=== PATIENT | male | born 1960 | race Asian ===

== ENCOUNTER 2016-11-03 13:58 | Emergency (ER) | payer OTHER ==
[2016-11-03 14:03] VITALS: TEMP 98.6
[2016-11-03 15:06] LABS: % IMMATURE GRANULYOCYTES 0.1 % (0.0-1.1); ABSOLUTE IMMATURE GRANULOCYTES 0.01 10^3/uL (0.00-0.10); ADD DIFF? NO; ADD MORPH? NO; ADD SCAN? NO; ATYPICAL LYMPHOCYTE FLAG 0 (0-99); FRAGMENT RBC FLAG 0 (0-99); HEMATOCRIT 48.4 % (40.0-51.0); HEMOGLOBIN 16.9 g/dL (13.7-17.5); LEFT SHIFT FLG 0 (0-99); LIPEMIA HEMOLYSIS FLAG 90 (0-99); MEAN CELL HEMOGLOBIN 32.8 pg (27.9-34.1); MEAN CELL HEMOGLOBIN CONCENTR. 34.9 g/dL (32.4-36.7); MEAN PLATELET VOLUME 9.5 fL (8.7-11.7); PLATELET CLUMPS FLAG 10 (0-99); PLATELET COUNT 243 10^3/uL (150-400); RED BLOOD CELL COUNT 5.15 10^6/uL (4.40-6.38); RED CELL DISTRIBUTION WIDTH 11.9 % (11.5-15.2)
[2016-11-03 15:21] LABS: ANION GAP 13 mEq/L (8-16); CALCIUM 9.5 mg/dL (8.5-10.4); CARBON DIOXIDE 23 mEq/l (22-31); CHLORIDE 104 mEq/L (97-110); CREATININE 0.9 mg/dL (0.7-1.3); ETHANOL SERUM < 10 mg/dL (0-10); GLOMERULAR FILTRATION RATE > 60; GLUCOSE 90 mg/dL (70-100); POTASSIUM 4.1 mEq/L (3.5-5.2); SODIUM 140 mEq/L (134-144)
--- NOTE | 2016-11-03 15:46 | EDPHY ---
Mental Health General Smoking Status: Never smoked Time Medically Cleared for Psychiatric Evaluation: 15:46 Time of Transfer of Care: 18:[address] To [address]:: Arvind Narrative: CHIEF COMPLAINT: anxiety HISTORY OF PRESENT ILLNESS: 56-year-old male presents emergency department with his requesting a mental evaluation. Patient has had multiple life stressors with stress at work and at home with a 15-year-old daughter. Patient started seeing a therapist 8 months ago, he started seeing a psychiatrist 1 month ago. Patient was started on an SSRI on October 19 and he was started on Seroquel to help with sleep 10 days ago. For the last week he is taking 150 mg each night. Patient reports he is not feeling any better, reports he is not eating, he is pacing around the house, she has found him in a position on the floor multiple times over the last couple days. Patient told his yesterday that he was not eating because he was worried about finances and being able to feed his family. His is been to him for 38 years and has never seen this way. Patient do denies any previous mental health history. He denies drug use. Patient was also prescribed Valium to use as needed which he does not like to use as it is too sedating. Patient has not gone to work for the last week. REVIEW OF SYSTEMS: A comprehensive 10 point review of systems is otherwise negative aside from elements mentioned in the history of present illness. Physical Exam Gen: Alert and Oriented, NAD HEENT: PERRL, moist mucous membranes NECK: no meningismus CV: regular rate and regular rhythm PULM: CTAB, no wheezes ABDOMEN: soft, non tender to palpation, BS present NEURO: Neurologically grossly intact EXTREMITIES: normal appearing SKIN: no rash or break in skin on exposed skin PSYCH: Flat affect, denies suicidal ideations, homicidal ideations, auditory or visual hallucinations (Valerie Sinha) Medical Decision Makin-Report passed on to Dr. Samuels at the end of my shift. Mental health at bedside. (Valerie Sinha) 1930 patient has been seen by DEVON Wright food preparer. Patient is dora for safety. He is discussed with psychiatrist. Plan is to increase the patient 's Seroquel to 300 mg at night. He will discontinue the SSRI. Will follow up with his psychiatrist, Dr. Ríos on Saturday. Patient is not suicidal or homicidal. He is dora for safety. He is not gravely disabled at this time. He is not holdable at this time. Patient and family are in agreement with this plan. (Francisco J Samuels) - Objective Vital Signs: Initial Vital Signs Temperature (C) 37 C 11/03/16 13:59 Heart Rate 69 11/03/16 13:59 Respiratory Rate 14 11/03/16 13:59 Blood Pressure 142/60 H 11/03/16 13:59 O2 Sat (%) 93 11/03/16 13:59 O2 Delivery Mode Room Air Allergies/Adverse Reactions: mustard Allergy (Verified 11/03/16 14:01) peanut Allergy (Verified 11/03/16 14:01) Home Medications: Medication Instructions Recorded Lipitor 11/03/16 Prozac 10 MG (*) 11/03/16 QUEtiapine FUMARATE [Seroquel 300 mg PO HS #30 tab 11/03/16 300mg (*)] Seroquel 25 mg (*) 11/03/16 Symbicort 160-4.5 Mcg Inh (*) 11/03/16 Laboratory Results: Laboratory Results 11/03/16 14:55 11/03/16 14:55 11/03/16 11/03/16 11/03/16 14:55 14:55 14:55 WBC 8.27 10^3/uL 10^3/uL (3.80-9.50) RBC 5.15 10^6/uL 10^6/uL (4.40-6.38) Hgb 16.9 g/dL g/dL (13.7-17.5) Hct 48.4 % % (40.0-51.0) MCV 94.0 fL fL (81.5-99.8) MCH 32.8 pg pg (27.9-34.1) MCHC 34.9 g/dL g/dL (32.4-36.7) RDW 11.9 % % (11.5-15.2) Plt Count 243 10^3/uL 10^3/uL (150-400) MPV 9.5 fL fL (8.7-11.7) Neut % (Auto) 70.5 % % (39.3-74.2) Lymph % (Auto) 20.8 % % (15.0-45.0) [place] % (Auto) 7.1 % % (4.5-13.0) Eos % (Auto) 1.0 % % (0.6-7.6) Baso % (Auto) 0.5 % % (0.3-1.7) Nucleat RBC Rel Count 0.0 % % (0.0-0.2) Absolute Neuts (auto) 5.83 10^3/uL 10^3/uL (1.70-6.50) Absolute Lymphs (auto) 1.72 10^3/uL 10^3/uL (1.00-3.00) Absolute Monos (auto) 0.59 10^3/uL 10^3/uL (0.30-0.80) Absolute Eos (auto) 0.08 10^3/uL 10^3/uL (0.03-0.40) Absolute Basos (auto) 0.04 10^3/uL 10^3/uL (0.02-0.10) Absolute Nucleated RBC 0.00 10^3/uL 10^3/uL (0-0.01) Immature Gran % 0.1 % % (0.0-1.1) Immature Gran # 0.01 10^3/uL 10^3/uL (0.00-0.10) Sodium 140 mEq/L mEq/L (134-144) Potassium 4.1 mEq/L mEq/L (3.5-5.2) Chloride 104 mEq/L mEq/L (97-110) Carbon Dioxide 23 mEq/l mEq/l (22-31) Anion Gap 13 mEq/L mEq/L (8-16) BUN 13 mg/dL mg/dL (7-23) Creatinine 0.9 mg/dL mg/dL (0.7-1.3) Estimated GFR > 60 Glucose 90 mg/dL mg/dL (70-100) Calcium 9.5 mg/dL mg/dL (8.5-10.4) TSH 0.809 uIU/mL uIU/mL (0.465-4.680) Urine Opiates Screen NEGATIVE (NEGATIVE) Urine Barbiturates NEGATIVE (NEGATIVE) Ur Phencyclidine Scrn NEGATIVE (NEGATIVE) Ur Amphetamine Screen NEGATIVE (NEGATIVE) U Benzodiazepines Scrn NON-NEGATIVE H (NEGATIVE) Urine Cocaine Screen NEGATIVE (NEGATIVE) U Marijuana (THC) Screen NEGATIVE (NEGATIVE) Ethyl Alcohol < 10 mg/dL mg/dL (0-10) Departure - Departure Disposition: Home, Routine, Self-Care Clinical Impression: Anxiety Condition: Fair Instructions: Anxiety (ED) Additional Instructions: Follow up with Dr. Ríos, your psychiatrist on Saturday. Return to the emergency depart for increasing depression, anxiety, thoughts of suicide or harming others, hallucinations, or any other concerns. Referrals: Clarke Gibson MD [Primary Care Provider] - As per Instructions LUIS RÍOS [Non Staff Provider ()] - As per Instructions Prescriptions: QUEtiapine FUMARATE [Seroquel 300mg (*)] 300 mg PO HS #30 tab
[2016-11-03 19:59] VITALS: BP 145/79; PULSE 63; RESP 16; O2SAT 94
== END 2016-11-03 19:58 | disposition home or self-care (01) ==
DX: F41.9 Anxiety disorder, unspecified (principal); Z91.010 Allergy to peanuts
CPT/HCPCS: 80305; G0480

== ENCOUNTER 2017-05-06 08:11 | Inpatient (IN) | payer OTHER ==
[2017-05-06 08:28] LABS: % IMMATURE GRANULYOCYTES 0.2 % (0.0-1.1); ABSOLUTE IMMATURE GRANULOCYTES 0.01 10^3/uL (0.00-0.10); ADD DIFF? NO; ADD MORPH? NO; ADD SCAN? NO; ATYPICAL LYMPHOCYTE FLAG 20 (0-99); FRAGMENT RBC FLAG 20 (0-99); HEMATOCRIT 44.5 % (40.0-51.0); HEMOGLOBIN 15.2 g/dL (13.7-17.5); LEFT SHIFT FLG 0 (0-99); LIPEMIA HEMOLYSIS FLAG 90 (0-99); MEAN CELL HEMOGLOBIN 32.3 pg (27.9-34.1); MEAN CELL HEMOGLOBIN CONCENTR. 34.2 g/dL (32.4-36.7); MEAN CELL VOLUME 94.7 fL (81.5-99.8); MEAN PLATELET VOLUME 10.1 fL (8.7-11.7); PLATELET CLUMPS FLAG 0 (0-99); PLATELET COUNT 215 10^3/uL (150-400); RED CELL DISTRIBUTION WIDTH 12.5 % (11.5-15.2)
[2017-05-06] MEDS ORDERED: HYDROmorphONE/DILAUDID 1 MG/ML INJ IVP ONE (08:30)
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
[2017-05-06 08:50] LABS: ANION GAP 13 mEq/L (8-16); CALCIUM 8.7 mg/dL (8.5-10.4); CARBON DIOXIDE 21 mEq/l (22-31); CHLORIDE 107 mEq/L (97-110); CREATININE 0.9 mg/dL (0.7-1.3); GLOMERULAR FILTRATION RATE > 60; GLUCOSE 99 mg/dL (70-100); INR 0.91 (0.83-1.16); POTASSIUM 4.1 mEq/L (3.5-5.2); PROTIME(PATIENT) 12.2 SEC (12.0-15.0); SODIUM 141 mEq/L (134-144)
[2017-05-06 08:56] LABS: APTT 28.7 SEC (23.0-38.0)
[2017-05-06] MEDS ORDERED: ACETAMINOPHEN 325 MG TAB PO PRN (12:31)
[2017-05-06] MEDS ORDERED: ONDANSETRON DISINTEGRATING 4 MG TAB PO PRN (12:31)
[2017-05-06] MEDS ORDERED: ONDANSETRON 4 MG/2 ML VIAL IVP PRN ×2 (12:31→19:10)
--- NOTE | 2017-05-06 13:12 | SOAPPROG ---
[facility] Progress Note Assessment/Plan: Assessment: Plan: 05/06/17 13:11Intertrochantaric/subtrochantaric left proximal femur fracture. Plan for surgery tonight at around 5pm. Objective: Vital Signs Temp Pulse Resp BP Pulse Ox 36.6 C 59 L 18 132/75 H 97 05/06/17 12:15 05/06/17 12:15 05/06/17 12:15 05/06/17 12:15 05/06/17 12:15 PT 12.2 SEC (12.0-15.0) 05/06/17 08:12 INR 0.91 (0.83-1.16) 05/06/17 08:12 ICD10 Worksheet Patient Problems: Problems Problem Status Onset Femoral fracture Acute
[2017-05-06] MEDS ORDERED: CETIRIZINE 10 MG TAB PO PRN (14:01)
[2017-05-06] MEDS ORDERED: NS 1,000 ML IV SCH (14:30)
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
[2017-05-06] MEDS: HYDROmorphONE/DILAUDID 1 MG/ML INJ IVP PRN ×2 (14:56→21:13)
--- NOTE | 2017-05-06 16:07 | CPEKG ---
Heart Rate: 62 RR Interval: 968 P-R Interval: 212 QRSD Interval: 86 QT Interval: 428 QTC Interval: 435 P Pawlet: 31 QRS Pawlet: 85 T Wave [place]: 31 EKG Severity - ABNORMAL ECG - EKG Impression: SINUS RHYTHM EKG Impression: FIRST DEGREE AV BLOCK Electronically Signed By: Austen Baker 07-May-2017 06:36:08
[2017-05-06] MEDS ORDERED: BACITRACIN 50,000 UNITS/10 ML SYR IRR ONE (16:23)
[2017-05-06] MEDS ORDERED: POLYMYXIN B SULFATE 500,000 UNIT/10 ML SYR IRR ONE (16:23)
[2017-05-06] MEDS ORDERED: BUPIVACAINE 0.25% 30 ML SDV ONE (16:24)
[2017-05-06] MEDS ORDERED: MIDAZOLAM 2 MG/2 ML VIAL ONE (17:09)
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
[2017-05-06] MEDS ORDERED: fentaNYL 100 MCG/2 ML INJ ONE ×3 (17:14→20:32)
[2017-05-06] MEDS ORDERED: PROPOFOL/EMULSION 500 MG/50 ML BOTTLE IV ONE (17:15)
[2017-05-06] MEDS ORDERED: CEFAZOLIN 2 GM/DEXTROSE/100 ML BAG IV ONE (17:17)
[2017-05-06] MEDS ORDERED: ceFAZolin 2 GM/DEXTROSE 100 ML IV ONE (17:30)
[2017-05-06] MEDS: ACETAMINOPHEN 500 MG TAB PO SCH ×2 (17:56→21:12)
[2017-05-06] MEDS ORDERED: ROCURONIUM 50 MG/5 ML VIAL ONE (18:07)
[2017-05-06] MEDS ORDERED: PROPOFOL 200 MG/20 ML VIAL ONE (19:01)
[2017-05-06] MEDS ORDERED: fentaNYL 100 MCG/2 ML INJ IVP PRN (19:10)
[2017-05-06] MEDS ORDERED: NALOXONE HCL 0.4 MG/ML INJ IVP PRN (19:10)
[2017-05-06] MEDS ORDERED: ALBUTEROL 3 ML DEYVIAL IH PRN (19:10)
[2017-05-06] MEDS ORDERED: HYDROmorphONE/DILAUDID 1 MG/ML INJ IVP PRN (19:10)
[2017-05-06] MEDS ORDERED: SUGAMMADEX SODIUM 200 MG/2 ML VIAL IVP ONE (19:13)
--- NOTE | 2017-05-06 19:38 | POSTOPPROG ---
Post Op Note Date of Operation: 05/06/17 Surgeon: Albert Stern Industrial Millwright: Milli Rivera PA-C Anesthesiologist: Dr. Abrams Pre-op Diagnosis: Left proximal femur fracture Post-op Diagnosis: Left proximal femur fracture Indication: unstable fracture Procedure: ORIF Left proximal femur fracture: synthes TFN [id number] Findings: see dictated operative note Inf/Abcess present in the surg proc area at time of surgery?: No EBL: 100-500 (400cc blood loss) Complications: no complications Specimen(s): none
[2017-05-06] MEDS ORDERED: oxyCODONE IR 5 MG TAB PO PRN ×2 (19:49→19:52)
--- NOTE | 2017-05-06 20:04 | POSTANESTH ---
Post Anesthetic Evaluation Cardiovascular Status: Normal, Stable Respiratory Status: Normal, Stable Level of Consciousness/Mental Status: Can Participate in Eval Pain Control: Adequate, Prn Tx Ordered Nausea/Vomiting Control: Adequate, Prn Tx Ordered Complications Possibly Related to Anesthesia: None Noted
[2017-05-06] MEDS: D5W 1/2 NS W/ 20 KCl/L 1,000 ML IV SCH (21:13)
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
[2017-05-07] MEDS: ceFAZolin 2 GM/DEXTROSE 100 ML IV SCH ×3 (00:44→17:01)
[2017-05-07 06:00] LABS: HEMATOCRIT 31.7 % (40.0-51.0); HEMOGLOBIN 10.7 g/dL (13.7-17.5); MEAN CELL HEMOGLOBIN 32.6 pg (27.9-34.1); MEAN CELL HEMOGLOBIN CONCENTR. 33.8 g/dL (32.4-36.7); MEAN CELL VOLUME 96.6 fL (81.5-99.8); RED BLOOD CELL COUNT 3.28 10^6/uL (4.40-6.38); RED CELL DISTRIBUTION WIDTH 12.7 % (11.5-15.2)
[2017-05-07] MEDS: ACETAMINOPHEN 500 MG TAB PO SCH ×3 (07:53→21:39)
[2017-05-07] MEDS: ENOXAPARIN 40 MG/0.4 ML SYR SC SCH (07:53)
--- NOTE | 2017-05-07 08:34 | SOAPPROG ---
SOAP Progress Note Assessment/Plan: Assessment:DOing Weel POD 1 Plan: Pain Control DVT Prophylaxis PT Toe Touch WB D/C Planning 05/07/17 08:33 Subjective: SLept OK Objective: Vital Signs Temp Pulse Resp BP Pulse Ox 36.6 C 63 18 109/55 L 98 05/07/17 04:37 05/07/17 04:37 05/07/17 04:37 05/07/17 04:37 05/07/17 04:37 Laboratory Results 05/07/17 04:42 05/06/17 05/07/17 05/08/17 05:59 05:59 05:59 Intake Total 2718 Output Total 2365 Balance 353 PT 12.2 SEC (12.0-15.0) 05/06/17 08:12 INR 0.91 (0.83-1.16) 05/06/17 08:12 AF VSS CSM I B LE Wound - Dresing Dry No calf pain/tenderness - Pending Discharge Pending Discharge Within 24 Hours: No Pending Discharge Within 48 Hours: Yes Pending Discharge Date: 05/09/17 Pending Discharge Time: 11:00 ICD10 Worksheet Patient Problems: Problems Problem Status Onset Femoral fracture Acute
[2017-05-07] MEDS: D5W 1/2 NS W/ 20 KCl/L 1,000 ML IV SCH (08:52)
[2017-05-07] MEDS ORDERED: Herbals/Supplements -Info Only PO SCH (09:00)
[2017-05-07] MEDS: BUDESONIDE/FORMOTEROL 80/4.5 60 PUFFS/MDI IH SCH ×2 (09:38→13:44)
[2017-05-07] MEDS: FLUoxetine 20 MG CAP PO SCH (10:20)
[2017-05-07] MEDS: ATORVASTATIN CALCIUM 10 MG TAB PO SCH (10:20)
[2017-05-07] MEDS: OMEGA-3 FATTY ACIDS 1,000 MG CAP PO SCH (10:20)
--- NOTE | 2017-05-07 11:49 | ASMTCMCOM ---
CM Note CM Note Notes: Reviewed chart/therapy recommendations. Met with patient regarding discharge poc. Discussed the possibility of Home Health Care, patient declines at this time. Has good support from and will follow-up with outpatient PT if MD feels necessary. CM available should needs arise. Date Signed: 05/07/2017 11:49 AM Electronically Signed By:Corina Ace RN
[2017-05-07 16:04] VITALS: RESP 16
--- NOTE | 2017-05-07 17:48 | HOSPPROG ---
Hospitalist Progress Note Assessment/Plan: #Left femur fracture: POD #1 open reduction, internal fixation. Pain controlled. PT #Acute pain: controlled with APAP #Acute blood loss anemia: expected with surgery. No sxs, repeat CBC in morning #Diet: regular #DVT ppx: per ortho, Lovenox #Disp: warrant inpt admission with femur fracture, requiring pt. Likely DC tomorrow with PT Subjective: pain controlled. Ambulating to bathroom Objective: Vital Signs Temp Pulse Resp BP Pulse Ox 38.2 C 84 16 111/56 L 95 05/07/17 16:04 05/07/17 16:04 05/07/17 16:04 05/07/17 16:04 05/07/17 16:04 05/06/17 05/07/17 05/08/17 05:59 05:59 05:59 Output Total 725 Balance -725 PT 12.2 SEC (12.0-15.0) 05/06/17 08:12 INR 0.91 (0.83-1.16) 05/06/17 08:12 ICD10 Worksheet Patient Problems: Problems Problem Status Onset Femoral fracture Acute
[2017-05-07 20:30] VITALS: O2SAT 93
[2017-05-08] MEDS: ceFAZolin 2 GM/DEXTROSE 100 ML IV SCH (01:39)
[2017-05-08 05:20] LABS: HEMOGLOBIN 9.5 g/dL (13.7-17.5); MEAN CELL HEMOGLOBIN 31.9 pg (27.9-34.1); MEAN CELL HEMOGLOBIN CONCENTR. 32.8 g/dL (32.4-36.7); MEAN CELL VOLUME 97.3 fL (81.5-99.8); RED BLOOD CELL COUNT 2.98 10^6/uL (4.40-6.38); RED CELL DISTRIBUTION WIDTH 12.7 % (11.5-15.2)
[2017-05-08] MEDS: ACETAMINOPHEN 500 MG TAB PO SCH (06:49)
--- NOTE | 2017-05-08 06:51 | SOAPPROG ---
SOAP Progress Note Assessment/Plan: AssessmentPlan: s/p ORIF L femur fracture POD#2 - Continue pain management, currently on Tylenol - Continue PT/OT - SCDs/TEDs for mechanical prophylaxis - Lovenox 40mg daily x 14 days - Follow-up with Dr. Stern 10-14 days post-operatively - Okay for discharge from an orthopedic standpoint 05/08/17 06:48 Subjective: Pt states he is doing well and ready to go home. Pain is well controlled with Tylenol. Pt denies fever, chills, chest pain, SOB, abdominal pain, N/V/D, numbness, tingling and calf pain. Objective: Vital Signs Temp Pulse Resp BP Pulse Ox 37.3 C 69 16 119/58 L 93 05/08/17 03:43 05/08/17 03:43 05/08/17 03:43 05/08/17 03:43 05/08/17 03:43 Laboratory Results 05/08/17 04:42 05/07/17 05/08/17 05/09/17 05:59 05:59 05:59 Intake Total 3502 Output Total 2525 Balance 977 PT 12.2 SEC (12.0-15.0) 05/06/17 08:12 INR 0.91 (0.83-1.16) 05/06/17 08:12 Physical Exam - Physical Exam General Appearance: alert, no apparent distress Cardiac/Chest: normal peripheral pulses Skin: normal color, warm/dry, other (Post-operative dressing intact and clean) Extremities: normal capillary refill, other (compartments soft), No pedal edema , No calf tenderness, No swelling, No Noble's sign Neuro/Psych: no motor/sensory deficits, alert, normal mood/affect, oriented x 3 ICD10 Worksheet Patient Problems: Problems Problem Status Onset Femoral fracture Acute
--- NOTE | 2017-05-08 08:34 | HOSPPROG ---
Hospitalist Progress Note Assessment/Plan: #Left femur fracture: POD #2 open reduction, internal fixation. Pain controlled. PT To be on Lovenox for 14 days. Follow up with Dr. Stern in 10-14 days #Acute pain: controlled with APAP #Acute blood loss anemia: expected with surgery. No sxs, repeat CBC in morning #Diet: regular #DVT ppx: per ortho, Lovenox #Plan: dc home/ further f/u w Dr Stern Subjective: Stephen is feeling well. Objective: Vital Signs Temp Pulse Resp BP Pulse Ox 37.3 C 69 16 119/58 L 93 05/08/17 03:43 05/08/17 03:43 05/08/17 03:43 05/08/17 03:43 05/08/17 03:43 Laboratory Results 05/08/17 04:42 05/07/17 05/08/17 05/09/17 05:59 05:59 05:59 Intake Total 3502 Output Total 2525 Balance 977 PT 12.2 SEC (12.0-15.0) 05/06/17 08:12 INR 0.91 (0.83-1.16) 05/06/17 08:12 - Physical Exam Constitutional: no apparent distress, appears nourished, not in pain Eyes: PERRL Ears, Nose, Mouth, Throat: hearing normal Cardiovascular: regular rate and rhythym Respiratory: no respiratory distress Skin: warm Musculoskeletal: generalized weakness Neurologic: AAOx3 Psychiatric: interacting appropriately ICD10 Worksheet Patient Problems: Problems Problem Status Onset Femoral fracture Acute
[2017-05-08 08:50] VITALS: BP 99/50; PULSE 85; TEMP 98.6
[2017-05-08] MEDS: ATORVASTATIN CALCIUM 10 MG TAB PO SCH (09:00)
[2017-05-08] MEDS: OMEGA-3 FATTY ACIDS 1,000 MG CAP PO SCH (09:01)
[2017-05-08] MEDS: BUDESONIDE/FORMOTEROL 80/4.5 60 PUFFS/MDI IH SCH (09:01)
[2017-05-08] MEDS: FLUoxetine 20 MG CAP PO SCH (09:01)
[2017-05-08] MEDS: ENOXAPARIN 40 MG/0.4 ML SYR SC SCH (09:02)
[2017-05-08] MEDS ORDERED: FLU VACC QS 2017-18 (3YR+)/PF 0.5 ML SYR (FLUARIX QUAD) IM ONE (11:34)
[2017-05-08] MEDS ORDERED: PNEUMOCOCCAL 0.5ML VACCINE VIAL IM ONE (11:34)
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
--- NOTE | 2017-05-08 14:10 | ASDISCHSUM ---
Discharge Information Plan Status:Home with No Needs Medically Cleared to Leave: Discharge Date:05/08/2017 12:09 PM CM D/C Disposition:Home, Routine, Self-Care ADT D/C Disposition:Home, Routine, Self-Care Projected Discharge Date:05/08/2017 12:09 PM Transportation at D/C: Discharge Delay Reason: Follow-Up Date:05/08/2017 12:09 PM Discharge Slot: Final Diagnosis: Placement Information Patient Contact Information Contact Name:DIXON Relationship: Address:[address] City:[place] Alternate Phone: [facility]/Zip Code:[place] [address] Email: Financial Information Financial Class:[id number] Primary Plan Desc:[employer] OPEN [employer] LOCAL Primary Plan Number:[id number] Secondary Plan Desc: Secondary Plan Number: Assessment Information [facility] CM Progress Note CM Note CM Note Notes: Reviewed chart/therapy recommendations. Met with patient regarding discharge poc. Discussed the possibility of Home Health Care, patient declines at this time. Has good support from and will follow-up with outpatient PT if MD feels necessary. CM available should needs arise. Date Signed: 05/07/2017 11:49 AM Electronically Signed By:Corina Ace RN [facility] CM Progress Note CM Note CM Note Notes: Pt medically stable for d/c, no CM d/c needs identified. Date Signed: 05/08/2017 02:09 PM Electronically Signed By:ENEDINA Garcia Intervention Information
== END 2017-05-08 12:09 | disposition home or self-care (01) | DRG 481 ==
LOC: EDUNIT# → F3N 11:14 → OBSVTOIN 05-07 12:31
PROVIDERS: ADMIT Internal Medicine; ATTEND Internal Medicine
PROC: 0QS604Z Reposition Right Upper Femur with Internal Fixation Device, Open Approach (ICD-10-PCS; principal; 2017-05-06 17:00)
DX: S72.22XA Displaced subtrochanteric fracture of left femur, initial encounter for closed fracture (principal); V18.2XXA Unspecified pedal cyclist injured in noncollision transport accident in nontraffic accident, initial encounter; D62 Acute posthemorrhagic anemia; F32.9 Major depressive disorder, single episode, unspecified; F41.9 Anxiety disorder, unspecified; E78.00 Pure hypercholesterolemia, unspecified; J45.909 Unspecified asthma, uncomplicated; Z23 Encounter for immunization
CPT/HCPCS: 97116-GP; 97161-GP; 97165-GO; G0008; G0009; G0378; J0171; J0690; J1170; J1650; J2250; J2704; J3010